=== PATIENT | female | born 1990 | race Hispanic/Latino ===

== ENCOUNTER 2020-12-16 14:01 | Day surgery (SDC) | payer OTHER ==
[2020-12-16] MEDS ORDERED: hydrALAZINE 20 MG/ML VIAL SLOW IVP PRN (15:45)
[2020-12-16 16:17] LABS: #Eosinphils 0.1 10x3/uL (0.0-0.5); #Neutrophils 7.4 10x3/uL (1.5-8.4); %Basophils 0.2 % (0.0-2.0); %Eosinophils 0.8 % (0.0-6.0); %Lymphocytes 15.9 % (18.0-47.0); %Monocytes 9.4 % (0.0-10.0); %Neutrophils 73.2 % (40.0-75.0); Mean Corpuscular HGB CONC 32.1 g/dL (32.0-36.0); Mean Corpuscular Hemoglobin 26.5 pg (27.0-33.0); Mean Corpuscular Volume 82.5 fl (81.6-98.3); Mean Platelet Volume 11.3 fl (7.4-10.4); Platelet Count 331 10x3/uL (150-450); RBC Distribution Width 13.7 % (11.5-14.5); Red Blood Cell (RBC) Count 3.78 10x6/uL (3.90-5.03); White Blood Cell (WBC) Count 10.1 10x3/uL (3.5-10.5)
[2020-12-16 16:27] LABS: ALT (SGPT) 23 U/L (8-55); AST (SGOT) 10 U/L (5-34); Albumin 2.9 g/dL (3.5-5.0); Alkaline Phosphatase 126 U/L (40-110); Anion Gap 12 mmol/L (10-20); BUN (Urea Nitrogen) 5 mg/dL (7.0-18.7); Bilirubin, Total 0.1 mg/dL (0.2-1.2); Calc. Creatinine Clearance 0 mL/min (70-130); Calcium 8.6 mg/dL (7.8-10.44); Carbon Dioxide 22 mmol/L (22-29); Chloride 108 mmol/L (98-107); Globulin 3.3 g/dL (2.4-3.5); Glucose 110 mg/dL (70-105); Potassium 3.7 mmol/L (3.5-5.1); Protein, Total 6.2 g/dL (6.0-8.3); Sodium 138 mmol/L (136-145)
== END 2020-12-16 16:15 | disposition home health service (06) ==
LOC: CSHERS 14:01 → CSHLD/OP 14:37
PROVIDERS: ATTEND Obstetrics & Gynecology
DX: O99.891 Other specified diseases and conditions complicating pregnancy (principal); R10.2 Pelvic and perineal pain; Z3A.26 26 weeks gestation of pregnancy
CPT/HCPCS: 80053; 84702; 85025; 99282

== ENCOUNTER 2021-07-01 06:58 | Emergency (ER) | payer OTHER ==
[2021-07-01] MEDS ORDERED: Acetaminophen 325 MG TAB ONE (07:32)
== END 2021-07-01 08:47 | disposition home or self-care (01) ==
LOC: CSHERS 06:58
DX: M79.604 Pain in right leg (principal)

== ENCOUNTER 2021-07-14 10:53 | Emergency (ER) | payer OTHER | END 2021-07-14 11:52 | disposition home or self-care (01) | LOC: CSHERS 10:53 | DX: B34.9 Viral infection, unspecified (principal) | CPT/HCPCS: 93005 ==

== ENCOUNTER 2025-04-15 15:18 | Emergency (ER) | payer OTHER | END 2025-04-15 16:49 | disposition home or self-care (01) | LOC: CSHERS 15:18 | DX: U07.1 COVID-19 (principal); E11.9 Type 2 diabetes mellitus without complications; F17.290 Nicotine dependence, other tobacco product, uncomplicated | CPT/HCPCS: 87081; 87428; 87430; 99283 ==